=== PATIENT | female | born 1990 ===

== ENCOUNTER 2018-08-10 05:37 | Inpatient (IN) | payer OTHER ==
[~2018-08-10] VITALS: Ht 167.6 cm; Wt 69.9 kg
== END 2018-08-13 17:22 | disposition home or self-care (01) | DRG 785 ==
LOC: LDR 05:37 → OB/GYN 05:37 → LDR 05:40 → OB/GYN 17:38
PROVIDERS: ADMIT Obstetrics & Gynecology
PROC: 4A1HXCZ Monitoring of Products of Conception, Cardiac Rate, External Approach (ICD-10-PCS; 2018-08-10)
PROC: 0UB70ZZ Excision of Bilateral Fallopian Tubes, Open Approach (ICD-10-PCS; 2018-08-10)
PROC: 10D00Z1 Extraction of Products of Conception, Low, Open Approach (ICD-10-PCS; principal; 2018-08-10 15:00)
DX: O36.5930 Maternal care for other known or suspected poor fetal growth, third trimester, not applicable or unspecified (principal); O32.1XX0 Maternal care for breech presentation, not applicable or unspecified; O34.211 Maternal care for low transverse scar from previous cesarean delivery; O75.82 Onset (spontaneous) of labor after 37 completed weeks of gestation but before 39 completed weeks gestation, with delivery by (planned) cesarean section; Z37.0 Single live birth; Z30.2 Encounter for sterilization; Z3A.38 38 weeks gestation of pregnancy